=== PATIENT | male | born 1985 ===

== ENCOUNTER 2017-04-10 11:14 | Emergency (ER) | payer OTHER ==
[2017-04-10 11:18] VITALS: BMI 32.3
[2017-04-10 11:22] VITALS: TEMP 97.8; O2SAT 99
[2017-04-10] MEDS ORDERED: TDAP Vaccine 0.5 mL Syr IM ONE (11:35)
[2017-04-10] MEDS ORDERED: ceFAZolin 2 GM in Sodium Chloride 0.9% 100 ML IVPB STA (11:37)
--- NOTE | 2017-04-10 11:39 | ED PDOC ---
Arrival/HPI - General Chief Complaint: Lower Extremity Problem/Injury Time Seen by Provider: 04/10/17 11:35 Historian: Patient - History of Present Illness Narrative History of Present Illness (Text): 04/10/17 11:36 32 y/o male, no pmh, nkda, last tetanus doesn't remember, c/o rt. foot 3rd/4th and 5th digit injury x 1 hour. Pt. stated that the trash shredder got stuck so he used his rt. foot with sneaker on kick the opening shredder which the sneaker got partially caught, no numbness or tingling, able to move his rt. foot injured toes, no dizziness, no chest pain or shortness of breath, no night sweat, no rash, no other medical or psychological complaints. Past Medical History - Provider Review Nursing Documentation Reviewed: Yes - Infectious Disease Hx of Infectious Diseases: None - Psychiatric Hx Substance Use: No - Anesthesia Hx Anesthesia: No Family/Social History - Physician Review Nursing Documentation Reviewed: Yes Family/Social History: Unknown Family HX Smoking Status: Never Smoked Hx Alcohol Use: Yes Frequency of alcohol use: Socially Hx Substance Use: No Allergies/Home Meds Allergies/Adverse Reactions: Allergies No Known Allergies Allergy (Verified 04/10/17 11:18) Review of Systems - Review of Systems Constitutional: absent: Fatigue, Fevers Eyes: absent: Vision Changes ENT: absent: Hearing Changes Respiratory: absent: SOB, Cough Cardiovascular: absent: Chest Pain Gastrointestinal: absent: Abdominal Pain, Nausea, Vomiting Musculoskeletal: Arthralgias. absent: Myalgias Skin: Laceration. absent: Rash, Pruritis, Abscess, Ulcer, Cellulitis Neurological: absent: Headache, Dizziness Psychiatric: absent: Anxiety, Depression Physical Exam Vital Signs Reviewed: Yes Vital Signs Temp Pulse Resp BP Pulse Ox 04/10/17 13:15 98 H 18 128/74 99 04/10/17 11:20 97.8 F 100 H 16 130/93 H 99 Temperature: Afebrile Blood Pressure: Hypertensive Pulse: Regular Respiratory Rate: Normal Appearance: Positive for: Well-Appearing, Non-Toxic, Comfortable Pain Distress: Moderate Mental Status: Positive for: Alert and Oriented X 3 - Systems Exam Head: Present: Atraumatic, Normocephalic Pupils: Present: PERRL Extroacular Muscles: Present: EOMI Conjunctiva: Present: Normal Ears: Present: NORMAL TM, Normal Canal. No: Erythema Mouth: Present: Moist Mucous Membranes Neck: Present: Normal Range of Motion Respiratory/Chest: Present: Clear to Auscultation, Good Air Exchange. No: Respiratory Distress, Accessory Muscle Use, Wheezes, Decreased Breath Sounds, Retracting, Rhonchi Cardiovascular: Present: Regular Rate and Rhythm, Normal S1, S2. No: Murmurs Abdomen: Present: Normal Bowel Sounds. No: Tenderness, Distention, Peritoneal Signs Back: Present: Normal Inspection Upper Extremity: Present: Normal Inspection. No: Cyanosis, Edema Lower Extremity: Present: Normal Inspection, NORMAL PULSES, Normal ROM, Neurovascularly Intact, Capillary Refill < 2 s, Other (Rt. foot: visible mild ecchymosis on the rt. foot 4th digit and superficial laceration approx. 1.5cm on the dorsum aspect on the 3rd/4th digit dorsum foot webspace region, mild ecchymosis noted on the 4th and 5th toe, no subungal hematoma, FROM without limitation, sensation intact, motor 5/5, +DPPT pulses, capillary refill< 2 seconds, neurovascular intact. ). No: Edema, Deformity Neurological: Present: GCS=15, CN II-XII Intact, Speech Normal Skin: Present: Warm, Dry, Normal Color. No: Rashes Psychiatric: Present: Alert, Oriented x 3, Normal Insight, Normal Concentration Medical Decision Making ED Course and Treatment: 04/10/17 11:42 -tdap -IV ancef/toradol -xray 04/10/17 12:16 -X ray show there is dislocation of the 4th digit toe, podiatry paged. -I spoke to the podiatry resident DR. Medina, discussed about the case and she will come to evaluate the patient and discussed with her own attending DR. Phillips, agreed on the ancef and discharge home with clindamycin, will proceed with raw shellfish preparer recommendation. 04/10/17 12:59 -Pt. request more pain med for the procedure, morphine 4mg IV ordered. 04/10/17 14:07 -Podiatry resident Dr. Arriaza, perform the reduction. -Wound irrigated, clean , ordered 2% lidocaine as per podiatry, sutured and splinted by the podiatry resident DR. Arriaza. -Post reduction film performed with improved anatomical position. -Pain well controlled and not in pain now, crutches ordered and trained. -As per podiatry, pt. is clear to be discharged home after reviewing the xray. -Discharge home with clindamycin, motrin, keep the dressing dry and clean, follow raw shellfish preparer recommendation for wound management, follow up with DR. Phillips this Monday03/13/2017 at [facility] for follow up care, return to the ER for any new or worsening signs or symptoms. - RAD Interpretation Radiology Orders: 04/10/17 11:35 FOOT RIGHT 3 VIEWS ROUTINE [RAD] Stat 04/10/17 13:23 FOOT RIGHT 3 VIEWS ROUTINE [RAD] Stat PROCEDURE: Right Foot Radiographs. HISTORY: rt. foot 3rd/4th and 5th digit injury COMPARISON: None. FINDINGS: BONES: No acute fracture. JOINTS: Dislocation 4th digit proximal interphalangeal joint level SOFT TISSUES: Normal. OTHER FINDINGS: None. IMPRESSION: Dislocated 4th digit. Rt. foot xray: PROCEDURE: Right Foot Radiographs. HISTORY: s/p right 4th digit closed reduction COMPARISON: None. FINDINGS: BONES: Normal. No fracture. JOINTS: Anatomic alignment following close reduction SOFT TISSUES: Normal. OTHER FINDINGS: Soft tissue swelling has increased compared to the prior study 11:59 March. IMPRESSION: Status post close reduction with return to anatomic alignment 4th digit [employer]: Radiologist - Medication Orders Current Medication Orders: Discontinued Medications Cefazolin Sodium 2 gm/ Sodium (Chloride) 100 mls @ 200 mls/hr IVPB STAT STA Stop: 04/10/17 12:06 Last Admin: 04/10/17 12:44 Dose: 200 mls/hr eMAR Start Stop Document 04/10/17 12:44 OCS (Rec: 04/10/17 12:44 OCS [id number]) Intravenous Solution Start Date 04/10/17 Start Time 12:44 End Date 04/10/17 End time 13:14 Total Infusion Time 30 Ketorolac Tromethamine (Toradol) 30 mg IVP STAT STA Stop: 04/10/17 11:37 Last Admin: 04/10/17 11:51 Dose: 30 mg MAR Pain Assessment Document 04/10/17 11:51 OCS (Rec: 04/10/17 11:52 OCS [id number]) Pain Reassessment Is this a pain reassessment? Yes Sleep Is patient sleeping during reassessment? No Presence of Pain Presence of Pain Yes Pain Scale Used Pain Scale Used Numeric Location Left, Right or Bilateral Right Pain Location Body Site Foot Description Description Constant Intensity of Pain at present 7 Pain Behavior Irritability Withdrawal from Touch Aggravating Factors ADL's IVP Administration Document 04/10/17 11:51 OCS (Rec: 04/10/17 11:52 OCS [id number]) Charges for Administration # of IVP Administrations 1 Lidocaine HCl (Lidocaine 2% 20ml Vial) 1 ml IJ ONCE STA Stop: 04/10/17 12:36 Last Admin: 04/10/17 12:44 Dose: 1 ml Morphine Sulfate (Morphine) 4 mg IVP STAT STA Stop: 04/10/17 13:00 Last Admin: 04/10/17 13:05 Dose: 4 mg MAR Pain Assessment Document 04/10/17 13:05 OCS (Rec: 04/10/17 13:[id number] Pain Reassessment Is this a pain reassessment? Yes Sleep Is patient sleeping during reassessment? No Presence of Pain Presence of Pain Yes Pain Scale Used Pain Scale Used Numeric Location Left, Right or Bilateral Right Pain Location Body Site Foot Description Description Constant Intensity of Pain at present 10 Pain Behavior Moaning Irritability IVP Administration Document 04/10/17 13:05 OCS (Rec: 04/10/17 13:[id number]) Charges for Administration # of IVP Administrations 1 Tetanus/Reduced Diphtheria/Acell Pertussis (Boostrix Vaccine Inj) 0.5 ml IM .ONCE ONE Stop: 04/10/17 11:36 Last Admin: 04/10/17 11:51 Dose: 0.5 ml MAR Immunization Data Document 04/10/17 11:51 OCS (Rec: 04/10/17 11:51 [id number] Immunization Data Vaccine Information Sheet Given Yes Vaccine Information Sheet Given Date 04/10/17 - PA / SALES ENGINEER [employer] / Resident Statement MD/DO has reviewed & agrees with the documentation as recorded. Disposition/Present on Arrival - Present on Arrival Any Indicators Present on Arrival: No History of DVT/PE: No History of Uncontrolled Diabetes: No Urinary Catheter: No History of Decub. Ulcer: No History Surgical Site Infection Following: None - Disposition Have Diagnosis and Disposition been Completed?: Yes Diagnosis: Foot laceration, Toe dislocation Disposition: HOME/ ROUTINE Disposition Time: 12:44 Patient Plan: Discharge Condition: IMPROVED Additional Instructions: -Discharge home with clindamycin, motrin, keep the dressing dry and clean, follow raw shellfish preparer recommendation for wound management, follow up with DR. Phillips this Monday03/13/2017 at wound center for follow up care, return to the ER for any new or worsening signs or symptoms. Prescriptions: Clindamycin [Cleocin] 300 mg PO QID #40 cap Ibuprofen [Motrin] 600 mg PO QID PRN #30 tab PRN Reason: Other Referrals: [facility] [Outside] - Follow up with primary Shabnam Phillips DPM [Staff Provider] - Follow up with primary PCP,NO [Primary Care Provider] - Follow up with primary Forms: WORK NOTE
[2017-04-10] MEDS ORDERED: Lidocaine 2% Inj (20ml) IJ STA (12:35)
[2017-04-10] MEDS ORDERED: Morphine 4 mg/ml ISec IVP STA (12:59)
--- NOTE | 2017-04-10 13:09 | CP.PCM.CON ---
History of Present Illness - History of Present Illness History of Present Illness: Podiatry Consult Note - Dr. Phillips 32 year old Khmer speaking male patient unremarkable PMHx seen and evaluated in ED for right foot 4th digit pain. Patient hemodynamically stable and NAD. 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 Per nurse, at 10:30 this morning patient was at work when a metal shredder fell onto his right foot and got stuck in his shoe ; patient presented to [facility] ED approximately 1 hour later. Unknown tetanus status. Patient reports severe pain in right foot, however currently decreased via pain medication. Patient denies numbness or tingling to his digits. Admits to feeling lightheaded, denies N/V/F/D/C/SOB. PMHx: unremarkable PSH: none FH: non-contributory SH: occasional ETOH, All: NKDA Review of Systems - Review of Systems All systems: reviewed and no additional remarkable complaints except (as per HPI ) Past Patient History - Infectious Disease Hx of Infectious Diseases: None - Past Social History Smoking Status: Never Smoked - PSYCHIATRIC Hx Substance Use: No - SURGICAL HISTORY Hx Surgeries: No - ANESTHESIA Hx Anesthesia: No Meds Home Medications: Home Medication List Medication Instructions Recorded Confirmed Type Clindamycin [Cleocin] 300 mg PO QID #40 cap 04/10/17 Rx Ibuprofen [Motrin] 600 mg PO QID PRN #30 tab 04/10/17 Rx Allergies/Adverse Reactions: Allergies Allergy/AdvReac Type Severity Reaction Status Date / Time No Known Allergies Allergy Verified 04/10/17 11:18 Physical Exam - Constitutional Appears: Well, Non-toxic, No Acute Distress - Extremities Exam Additional comments: RLE focused physical exam VASC: DP and PT pulses palpable 2/4. CFT <3 seconds to all digits. Temperature gradient cool to cool. Non-pitting edema noted to forefoot. NEURO: Gross sensation intact. DERM: Laceration #1 noted to 3rd interspace measuring approximately 2cm; no debris noted within laceration; pooling of blood however no pulsatile active bleeding noted; hematoma noted periwound. Laceration #2 measuring approximately 0.5cm noted to 4th digit sulcus; no drainage noted; no debris noted. ORTHO: Pain on palpation right foot. MMT deferred due to guarding. Able to move digits 1-5 however guarded. - Neurological Exam Neurological exam: Alert, Oriented x3 - Psychiatric Exam Psychiatric exam: Normal Affect, Normal Mood Results - Vital Signs Recent Vital Signs: Last Vital Signs Temp 97.8 F 04/10/17 11:20 Pulse 100 H 04/10/17 11:20 Resp 16 04/10/17 11:20 BP 130/93 H 04/10/17 11:20 Pulse Ox 99 04/10/17 11:20 Assessment & Plan - Assessment and Plan (Free Text) Assessment: 32 year old male unremarkable PMHx with 1) right 3rd interspace laceration 2) right foot plantar 4th digit laceration 3) right 4th digit PIPJ dislocation Plan: Patient seen and evaluated in ED Discussed with attending, Dr. Phillips Tdap given Ancef 2g given in ED R foot XR obtained: 4th digit PIPJ dislocation 10cc of 2% lidocaine plain administered in proximal V block along 4th digit WCx obtained Lacerations cleansed with betadine/saline solution and closed using 4-0 nylon 4th digit PIPJ close reduction performed Betadine splint applied to 4th digit and dressed with DSD Surgical shoe dispensed, pt to be PWB to right heel with the assistance of crutches R foot XR s/p reduction ordered - appropriate reduction of 4th PIPJ Recommend Cipro Pain mgmt per ED Patient to follow up in wound care center Thursday 04/12. Patient to keep dressing clean/dry/intact until appointment. Stable per podiatry standpoint Thank you for the consult, please reconsult as needed
--- NOTE | 2017-04-10 13:14 | RAD ---
PROCEDURE: Right Foot Radiographs. HISTORY: rt. foot 3rd/4th and 5th digit injury COMPARISON: None. FINDINGS: BONES: No acute fracture. JOINTS: Dislocation 4th digit proximal interphalangeal joint level SOFT TISSUES: Normal. OTHER FINDINGS: None. IMPRESSION: Dislocated 4th digit. Concordant results with the preliminary interpretation rendered by the emergency department physician procedure.
[2017-04-10 13:28] VITALS: BP 128/74; PULSE 98; RESP 18
--- NOTE | 2017-04-10 14:10 | RAD ---
PROCEDURE: Right Foot Radiographs. HISTORY: s/p right 4th digit closed reduction COMPARISON: None. FINDINGS: BONES: Normal. No fracture. JOINTS: Anatomic alignment following close reduction SOFT TISSUES: Normal. OTHER FINDINGS: Soft tissue swelling has increased compared to the prior study 11:59 April 10, 2017. IMPRESSION: Status post close reduction with return to anatomic alignment 4th digit
== END 2017-04-10 14:10 | disposition home or self-care (01) ==
LOC: ED 11:14
DX: S91.311A Laceration without foreign body, right foot, initial encounter (principal); S93.114A Dislocation of interphalangeal joint of right lesser toe(s), initial encounter; W23.0XXA Caught, crushed, jammed, or pinched between moving objects, initial encounter; Y99.0 Civilian activity done for income or pay; Z23 Encounter for immunization
CPT/HCPCS: 12001; 28660; 73630; 87070; 90471; 90715; 96365; 96375; 99285; J0690; J1885; J2270